=== PATIENT | male | born 1955 | race Caucasian/White ===

== ENCOUNTER → 2018-10-27 09:06 | Outpatient (CLI) | payer BC, MEDICAID ==
[2013-10-29 07:00] VITALS: BMI 31.6
[~2018-10-27 09:06] MED LIST: DIABETA1.25 MG OR; GLUCOPHAGE500 MG PO; JANUMET 50-5001 TAB PO; JANUVIA50 MG; LISINOPRIL-HCTZ1 T13 PO; LISINOPRIL2.5 MG; NORCO 10/325 TA1 TA1 PO; PRILOSEC20 MG PO
== END | disposition home or self-care (01) ==
LOC: D.HCCARDIO 09:06
PROVIDERS: ATTEND Internal Medicine Cardiovascular Disease
DX: I20.9 Angina pectoris, unspecified (principal)